=== PATIENT | male | born 1985 | race Caucasian/White ===

== ENCOUNTER 2024-11-09 23:36 | Emergency (ER) | payer SELFPAY ==
[2024-11-09 23:38] VITALS: BP 198/133; PULSE 118; RESP 18; TEMP 36.8; O2SAT 97; BMI 34.2
--- NOTE | 2024-11-09 23:38 | ECG_ITS ---
APPROVED REPORT Exam: Resting ECG HR:107 bpm ECG Measurements Heart Rate 107 AXES DC 140 P 58 QRSd 99 QRS 34 QT 304 T 3 QTc 367 Conclusion SINUS TACHYCARDIA POSSIBLE LEFT ATRIAL ENLARGEMENT [-0.1mV P-WAVE IN V1/V2] POSSIBLE LEFT VENTRICULAR HYPERTROPHY [VOLTAGE CRITERIA PLUS LAE OR QRS WIDENING] NONSPECIFIC T-WAVE ABNORMALITY ABNORMAL ECG UNCONFIRMED REPORT Electronically signed by : JOYCE ERVIN, 11/10/2024 04:57:56
--- NOTE | 2024-11-09 23:39 | XR_ITS ---
PROCEDURE INFORMATION: Exam: XR Chest Exam date and time: 11/10/2024 12:08 AM Age: 39 years old Clinical indication: Pain; Left-sided; Additional info: Cp TECHNIQUE: Imaging protocol: Radiologic exam of the chest. Views: 1 view. COMPARISON: No relevant prior studies available. FINDINGS: Lungs: Mild hypoventilation Pleural spaces: Unremarkable. No pleural effusion. No pneumothorax. Heart/Mediastinum: Unremarkable. No cardiomegaly. Vasculature: Central vascular crowding Bones/joints: Unremarkable. Other findings: No effusions IMPRESSION: Hypoventilated chest.
--- NOTE | 2024-11-09 23:44 | HMH.EDGENADL ---
Discharge Plan Disposition Patient Disposition: Home, Self-Care Prescriptions Prescriptions: New atorvastatin [Lipitor] 80 mg tablet 80 mg PO DAILY Qty: 60 2RF metformin 500 mg tablet 500 mg PO BID Qty: 30 2RF lisinopril 20 mg tablet 20 mg PO DAILY Qty: 60 2RF metoprolol succinate 25 mg tablet extended release 24 hr 25 mg PO DAILY Qty: 60 2RF Referrals Follow up/Referrals: Provider,Referral, MD [Primary Care Provider, Medical] - See instructions Activity Restrictions/Add. Instructions Additional Instructions/Restrictions: Recommend restarting your medications as previously prescribed, I sent new prescriptions. Recommend following up with PCP and with cardiology. Clinical Impressions Clinical Impression: Chest pain, Hypertension Stand Alone Forms Stand Alone Forms: Work/School Release Print Language Print Language: French Discharge ED Provider: Juan Francisco Lopez Adult HPI General Chief complaint: Chest Pain Stated complaint: chest pain Time Seen by Provider: 11/09/24 23:43 Mode of Arrival: Ambulatory Source of Information: Patient Description of Symptoms (Recalled from ER Triage Doc. by RN): pt to ED with c/o left sided chest pain x2 days pain is better at this time History of Present Illness HPI narrative: 39-year-old male with history of prior CA status post stent last year presents for chest pain. He reports has been ongoing for the last couple of days. Central/left-sided. Achy in nature. Reports it was better after taking some aspirin this morning but it is still hurting a little bit. He reports no shortness of breath. Denies any abdominal pain. Denies nausea or vomiting. He reports that he was supposed to be on a blood thinner and blood pressure medications but he lost his insurance recently and he has not taken any of his meds for the last couple of months. Related Data Previous Rx's ?Medication ?Instructions ?Recorded atorvastatin 80 mg tablet (Lipitor) 80 mg PO DAILY #60 tabs 11/10/24 lisinopril 20 mg tablet 20 mg PO DAILY #60 tabs 11/10/24 metformin 500 mg tablet 500 mg PO BID #30 tabs 11/10/24 metoprolol succinate 25 mg 25 mg PO DAILY #60 tabs 11/10/24 tablet,extended release 24 hr Allergies Allergy/AdvReac Type Severity Reaction Status Date / Time No Known Allergies Allergy Verified 11/09/24 23:43 [facility] Disclaimer: The information contained in this section may have been updated after the patient was seen, as this information can be updated by other users. Social History Smoking Status: Current every day smoker alcohol intake: never current occupational status: employed Travel in the last 8 weeks?: None ROS Obtained: Yes All systems reviewed & no additional complaints except as documented Physical Exam General General appearance: alert and in no apparent distress Head Head exam: atraumatic and normocephalic Eye Eye exam: Present normal appearance, PERRL and EOMI ENT ENT exam: Present normal oropharynx and normal external ear exam Neck Neck exam: Present normal inspection and full ROM Chest Chest inspection: Present normal inspection and symmetric chest wall rise; Absent tenderness Respiratory Respiratory exam: Present normal lung sounds bilaterally; Absent respiratory distress Cardiovascular Cardiovascular exam: Present regular rate and normal rhythm Abdominal Exam Abdominal exam: Present soft; Absent distention, tenderness or guarding Extremities Exam Extremities exam: Present normal inspection; Absent edema or joint swelling Back Exam Back exam: Present normal inspection; Absent tenderness Neurological Exam Neurological exam: Present alert and oriented X3; Absent motor sensory deficit Psychiatric Psychiatric exam: Present normal affect and normal mood Skin Skin exam: Present warm, dry and normal color Lymphatic Lymphatic Findings: no adenopathy Medical Decision Making Medical Records Medical records reviewed: Yes I reviewed the patient's medical records. Screening: Per USPSTF and CDC recommendations, given the prevalence of disease in our region, it is our hospital?s policy to screen for HIV and viral Hepatitis for all patients aged 18 and over and those with ongoing risk factors. Ross Inquiry Pt receiving controlled substance: No Ross was queried for this patient: No Vital Signs: 11/09/24 23:38 11/10/24 00:30 11/10/24 00:45 Temperature 98.2 F Temperature Source Oral Pulse Rate 111 H 111 H Pulse Rate [Left Radial] 118 H Respiratory Rate 18 18 22 Blood Pressure 165/99 H 154/94 H Blood Pressure [Right Arm] 198/133 H Blood Pressure Mean Blood Pressure Mean [Right Arm] 154 Blood Pressure Source Blood Pressure Source [Right Arm] Automatic Cuff Blood Pressure Position Blood Pressure Position [Right Arm] Sitting 02 Sat by Pulse Oximetry 97 96 95 Oxygen Delivery Method Room Air 11/10/24 01:15 11/10/24 01:30 11/10/24 01:45 Temperature Temperature Source Pulse Rate 105 H 103 H 98 H Pulse Rate [Left Radial] Respiratory Rate Blood Pressure 157/99 H 172/105 H 156/105 H Blood Pressure [Right Arm] Blood Pressure Mean Blood Pressure Mean [Right Arm] Blood Pressure Source Blood Pressure Source [Right Arm] Blood Pressure Position Blood Pressure Position [Right Arm] 02 Sat by Pulse Oximetry 97 96 96 Oxygen Delivery Method 11/10/24 02:00 11/10/24 02:30 11/10/24 02:49 Temperature Temperature Source Pulse Rate 102 H 99 H 107 H Pulse Rate [Left Radial] Respiratory Rate Blood Pressure 173/99 H 164/101 H Blood Pressure [Right Arm] Blood Pressure Mean Blood Pressure Mean [Right Arm] Blood Pressure Source Blood Pressure Source [Right Arm] Blood Pressure Position Blood Pressure Position [Right Arm] 02 Sat by Pulse Oximetry 96 95 Oxygen Delivery Method 11/10/24 03:00 11/10/24 03:30 11/10/24 03:30 Temperature Temperature Source Pulse Rate 98 H 86 Pulse Rate [Left Radial] Respiratory Rate 18 Blood Pressure 143/94 H 147/101 H Blood Pressure [Right Arm] Blood Pressure Mean 112 Blood Pressure Mean [Right Arm] Blood Pressure Source Blood Pressure Source [Right Arm] Blood Pressure Position Blood Pressure Position [Right Arm] 02 Sat by Pulse Oximetry 96 97 Oxygen Delivery Method 11/10/24 03:33 Temperature 98.2 F Temperature Source Oral Pulse Rate 89 Pulse Rate [Left Radial] Respiratory Rate 18 Blood Pressure 136/86 Blood Pressure [Right Arm] Blood Pressure Mean Blood Pressure Mean [Right Arm] Blood Pressure Source Automatic Cuff Blood Pressure Source [Right Arm] Blood Pressure Position Sitting Blood Pressure Position [Right Arm] 02 Sat by Pulse Oximetry Oxygen Delivery Method Room Air Lab Data Lab results reviewed: Yes I reviewed the patient's lab results. Lab Results 11/09/24 23:35: WBC 8.5, RBC 5.31, Hgb 16.1, Hct 45.0, MCV 84.7, MCH 30.3, MCHC 35.8 H, RDW 12.2, Plt Count 267, MPV 9.6, Neut % (Auto) 40.0, Lymph % (Auto) 48.2, [place] % (Auto) 8.2, Eos % (Auto) 2.4, Baso % (Auto) 0.7, Neut # (Auto) 3.4, Lymph # (Auto) 4.1, [place] # (Auto) 0.7, Eos # (Auto) 0.2, Baso # (Auto) 0.1, D-Dimer 0.54 H, Sodium 131 L, Potassium 4.4, Chloride 90 L, Carbon Dioxide 26, Anion Gap 19.4 H, BUN 10, Creatinine 0.50 L, Estimated Creat Clear 324 H, Estimated GFR 183, Est GFR ( Amer) 222, Glucose 396 H, Calcium 9.0, Total Bilirubin 1.1, AST 103 H, ALT 99 H, Alkaline Phosphatase 87, Troponin I < 0.01, Total Protein 9.0 H, Albumin 4.5, Globulin 4.5 H, Albumin/Globulin Ratio 1.0 L, Lipase 404 H 11/10/24 02:43: Troponin I < 0.01 11/09/24 23:35 11/09/24 23:35 Orders (Tests/Meds): ED MEDICATIONS Discontinued Medications Generic Name Dose Route Start Last Admin Trade Name Freq PRN Reason Stop Dose Admin Acetaminophen 1,000 mg 11/09/24 23:38 11/10/24 00:06 Acetaminophen 500mg Tab PO 11/09/24 23:39 1,000 mg ONCE ONE Administration Aspirin 324 mg 11/09/24 23:38 11/10/24 00:06 Aspirin 81mg Chewable Tablet PO 11/09/24 23:39 324 mg ONCE ONE Administration Belladonna Alkaloids 60 ml 11/09/24 23:38 11/10/24 00:06 Belladonna Alkaloids 60 Ml Ml PO 11/09/24 23:39 60 ml ONCE ONE Administration Iopamidol 70 ml 11/10/24 01:02 11/10/24 01:06 Iopamidol-370 (76%);100ml Bottle IV 11/10/24 01:03 70 ml ONCE ONE Administration Nitroglycerin 0.4 mg 11/09/24 23:38 11/10/24 00:07 Nitroglycerin 0.4mg Sl Tablet SL 12/09/24 23:37 0.4 mg Q5MINP PRN Administration Chest Pain Sodium Chloride 40 ml 11/10/24 01:02 11/10/24 01:06 0.9 % Sodium Chloride 50 Ml Vial IV 11/10/24 01:03 40 ml ONCE ONE Administration Sodium Chloride 10 ml 11/10/24 01:02 11/10/24 01:06 Sodium Chloride 0.9% 10ml Syr (Rad Only) IV 12/10/24 01:01 10 ml NEEDED PRN Administration Maintain IV Site ORDERS Category Date Time Status CT angio chest PE protocol Stat Cat Scan 11/10/24 00:42 Completed CXR --portable [XR chest portable] Stat Exams 11/09/24 23:39 Completed CBC w/Auto Diff [Complete Blood Count Auto Diff] Stat Lab 11/09/24 23:35 Completed CMP [Comprehensive Metabolic Panel] Stat Lab 11/09/24 23:35 Completed D-Dimer Stat Lab 11/09/24 23:35 Completed Lipase Stat Lab 11/09/24 23:35 Completed Troponin I Q3H Lab 11/09/24 23:35 Completed Troponin I Q3H Lab 11/10/24 02:43 Completed ECG Data Tracing #1: I reviewed this ECG and interpreted as documented below: Sinus tachycardia, rate of 107, possible LVH, no significant ST elevation. T wave inversions in lead III and aVF ECG initial impression date: 11/09/24 ECG initial impression time: 23:33 HEART Score History (anamnesis): Moderately suspicious ECG: Non-specific disturbance Age: <45 years Risk factors: Atherosclerosis history Troponin: </= normal limit HEART Score: 4 Medical Decision Narrative: 39-year-old male with history of coronary artery disease status post stent last year, hypertension not on medications for the last couple of months, presents for 2 days of worsening chest pain. History was obtained via interactive discussion with patient. On arrival, patient is afebrile, hypertensive, generally well-appearing, satting poorly on room air, tachycardic, moving all extremities spontaneously. Full physical exam performed and significant for no significant physical exam abnormalities. Differential includes but is not limited to ACS, PE, musculoskeletal chest pain, hypertension, hypertensive emergency. Patient was given aspirin Tylenol nitro GI cocktail for symptomatic management and correction of underlying abnormalities. Workup initiated including CBC CMP troponin EKG D-dimer chest x-ray lipase. On re-evaluation, patient [remains afebrile, HD stable.] Laboratory workup independently interpreted by me and significant for negative initial troponin, mildly elevated LFTs, mildly elevated lipase (patient has no epigastric pain or nausea vomiting), D-dimer elevated, will assess with CT PE. Imaging independently interpreted by me and significant for clear lungs on radiographs, some groundglass opacities which could reflect mild edema versus infection. See radiology read for full review of final results. Patient was placed in ED observation status for serial cardiac monitoring and serial cardiac enzymes. On reassessment, patient armando chest pain-free. Blood pressure stable. Continues to sat appropriately on room air. Repeat troponin returns undetectably low. Interactive discussion was had with patient guarding his presentation. I think this is likely the result of hypertension and not being able take his antihypertensive medications at home after he lost his insurance. I sent in new prescriptions for all of his medications and encouraged him to establish care with one of our primary care providers. He was given return precautions and discharged in stable condition. Procedures Risk/Benefits of Procedure(s) Were Explained: Yes Critical Care Critical Care Time Critical Care Time: No
[2024-11-09 23:48] LABS: Hematocrit 45.0 % (42.0-52.0); Hemoglobin 16.1 g/dL (14.1-18.0); Immature Granulocytes % 0.5 %; Mean Corpuscular HGB Conc 35.8 g/dL (31.8-35.4); Mean Corpuscular Hemoglobin 30.3 pg (27.0-31.2); Mean Corpuscular Volume 84.7 fl (80-94); Nucleated Red Blood Cells % 0 %; Platelet Count 267 K/mm3 (142-424); Red Blood Count 5.31 M/mm3 (4.60-6.20); Red Cell Distribution Width-SD 37.4 fL; White Blood Count 8.5 K/mm3 (4.8-10.8)
--- OUTSIDE RECORDS SUMMARY | 2024-11-09 23:48 | XMS_ITS | Clinical Summary ---
Author Organization [facility] ([place], [place], [place], [place]) Address [address] [place] [address] Care Team Providers Care Fire Sprinkler Inspector Name Role Phone Trinh Espinal SARA Primary Care Provider [phone] Allergies No known active allergies Medications empagliflozin (JARDIANCE) 10 mg tablet Take 1 tablet (10 mg total) by mouth daily. Active nitroglycerin (NITROSTAT) 0.4 MG SL tabletIndications: Coronary artery disease involving cachil dehe coronary artery of cachil dehe heart without angina pectoris Put 1 pill under tongue every 5min as needed for chest pain.No more than 3 doses in 15min.Call 911 if pain unrelieved 5min after 1st dose. 25 tablet 1 4 025 Active HYDROcodone-acetam inophen (NORCO) 5-325 mg per tablet Take 1 tablet by mouth every 6 (six) hours as needed. 4 Active ticagrelor (BRILINTA) 90 mg tab tabletIndications: Non-STEMI (non-ST elevated myocardial infarction) (HCC),H/O heart artery stent Take 1 tablet (90 mg total) by mouth 2 (two) times daily. 180 tablet 1 4 Active DULoxetine (CYMBALTA) 30 MG capsuleIndications :Other diabetic neurological complication associated with type 2 diabetes mellitus (HCC) Take 1 capsule (30 mg total) by mouth daily. 90 capsule 3 5 Active metoprolol succinate (TOPROL-XL) 25 MG 24 hr tabletIndications: Coronary artery disease involving cachil dehe coronary artery of cachil dehe heart without angina pectoris TAKE 1 TABLET (25 MG TOTAL) BY MOUTH DAILY. 90 tablet 1 5 026 Active glipiZIDE (GLUCOTROL XL) 5 MG 24 hr tabletIndications: Type 2 diabetes mellitus without complication, without long-term current use of insulin (HCC) Take 1 tablet (5 mg total) by mouth daily. 90 tablet 1 5 Active lisinopriL (ZESTRIL) 20 MG tabletIndications: Hypertension, unspecified type Take 1 tablet (20 mg total) by mouth daily. 90 tablet 1 5 Active metFORMIN (GLUCOPHAGE-XR) 500 MG 24 hr tabletIndications: Type 2 diabetes mellitus without complication, without long-term current use of insulin (HCC) Take 1 tablet (500 mg total) by mouth 2 (two) times daily HOLD for 2 days post cath. September restart on 08-22-2023 for evening dose.. 180 tablet 1 5 Active atorvastatin (LIPITOR) 80 MG tabletIndications: High triglycerides,Hype rlipidemia, unspecified hyperlipidemia type Take 1 tablet (80 mg total) by mouth nightly. 90 tablet 1 5 Active aspirin 81 MG EC tabletIndications: Non-STEMI (non-ST elevated myocardial infarction) ([facility]),H/O heart artery stent Take 1 tablet (81 mg total) by mouth daily. 90 tablet 1 5 Active clopidogreL (PLAVIX) 75 mg tabletIndications: Non-STEMI (non-ST elevated myocardial infarction) ([facility]) Take 1 tablet (75 mg total) by mouth daily Look-alike/S ound-alike medication. 30 tablet 11 5 Active sildenafiL (VIAGRA) 50 MG tabletIndications: Other male erectile dysfunction Take 1 tablet (50 mg total) by mouth daily as needed. 30 tablet 2 5 Active Active Problems Problem Noted Date Diagnosed Date Other diabetic neurological complication associated with type 2 diabetes mellitus 06/19/2024 H/O heart artery stent 06/19/2024 Hyperlipidemia, unspecified hyperlipidemia type 06/19/2024 Hypertension, unspecified type 06/19/2024 Chest pain, unspecified type 12/17/2023 Non-STEMI (non-ST elevated myocardial infarction ) 08/20/2023 Resolved Problems Problem Noted Date Diagnosed Date Resolved Date NSTEMI (non-ST elevated myoc ardial infarction) 08/19/2023 08/20/2023 Encounters Date Type Department Care Team Description 10/06/[address] [address] Trinh Espinal APRN Other male erectile dysfunction 08/27/2024 Orders Only [address] [address] Annmarie Mujica MA Non-STEMI (non-ST elevated myocardial infarction) (HCC) (Primary Dx) 08/22/2024 Telephone [facility] - [address] [address] Stefan Oropeza PA-C GEL 08/14/2024 Orders Only [address] [address] Annmarie Mujica MA Other male erectile dysfunction 08/14/2024 Orders Only [address] [address] Marguerite Duran CMA Other male erectile dysfunction 08/14/[address] [address] Trinh Espinal APRN Medication Refill from Last 3 Months Immunizations Name Administration Dates Next Due Covid-19 Vaccine MRNA (PF) 1 2yr+ (Aptera/EqualEyes)([id number]) 12/16/2020,11/25/2020 Tdap 12/16/2020 Family History Medical History Relation Name Comments Diabetes Father Heart attack Father at 47 from heart attack Hyperlipidemia Father Hypertension Father Diabetes Mother Hyperlipidemia Mother Hypertension Mother Neuropathy Mother Thyroid disease Mother Diabetes Paternal Grandfather Heart attack Paternal Grandfather multipl e heart attacks Diabetes Paternal Grandmother Relation Name Status Comments Father Mother Alive Paternal Grandfather Paternal Grandmother Social History Tobacco Use Types Packs/Day Years Used Date Smoking Tobacco: Former Cigarettes Smokeless Tobacco: Former Tobacco Cessation:Counseling Given: Not Answered Comments:Vapes Alcohol Use Standard Drinks/Week Comments Not Currently 0 (1 standard drink = 0.6 oz pur e alcohol) [facility] - Mental Health Answer Date Recorde d Little interest or pleasure in doing things Not at all 06/18/2024 Feeling down, depressed, or hopeless Not at all 06/18/2024 Feeling of Stress Not on file 06/18/2024 Utilities Answer Date Recorded In the past 12 months, has t he electric, gas, oil, or water company threatened to shut off services in your home? No 08/19/2023 Food Insecurity Answer Date Recorded Within the past 12 months, y ou worried that your food would run out before you got money to buy more. Never true 08/19/2023 Within the past 12 months, t he food you bought just didn't last and you didn't have money to get more. Never true 08/19/2023 Transportation Needs Answer Date Record ed In the past 12 months, has l ack of reliable transportation kept you from medical appointments, meetings, work or from getting things needed for daily living? No 08/19/2023 Financial Resource Strain Answer Date R ecorded How hard is it for you to pa y for the very basics like food, housing, medical care, and heating? Would you say it is: Not hard at all 08/19/2023 Employment Answer Date Recorded Do you want help finding or keeping work or a job? I do not need or want help 08/19/2023 Family and Community Support Answer Hi e Recorded If for any reason you need h elp with day-to-day activities such as bathing, preparing meals, shopping, managing finances, etc., do you get the help you need? I don't need any help 08/19/2023 Feeling Lonely or Isolated 0 08/18 Educational Attainment Answer Date Kartik rded Do you speak a language other than [place] at [facility]? No 08/19/2023 Do you want help with school or training? For example, starting or completing job training or getting a high school diploma, GED or equivalent. No 08/19/2023 Physical Activity Answer Date Recorded Number of minutes of exercise per week 90 08/19/2023 Substance Use Answer Date Recorded How many times in the past y ear have you used prescription drugs for non-medical reasons? Never 08/19/2023 How many times in the past year have you used [place] legal drugs? Never 08/19/2023 Sex and Gender Information Value Date Recorded Sex Assigned at Male 11/01/2021 8:20 PM CDT Legal Sex Male 8:20 PM CDT Gender Identity Male 11/01/2021 8:20 PM CDT Sexual Orientation Not on file Last Filed Vital Signs Vital Sign Reading Time Taken Comments Blood Pressure 134/88 06/18/2024 11:48 AM EST Pulse 105 06/18/2024 11:48 AM EST Temperature 36.9 C (98.4 F) 06/18/2024 11:48 AM EST Respiratory Rate 23 05/24/2024 10:30 PM EST Oxygen Saturation 97% 06/18/2024 11:48 AM EST Inhaled Oxygen Concentration - - Weight 121.1 kg (267 lb) 06/18/2024 11:48 AM EST Height 185.4 cm (6' 1 ) 06/18/2024 11:48 AM EST Body Mass Index 35.23 06/18/2024 11:48 AM EST Plan of Treatment Health Maintenance Due Date Last Done Comments Diabetic Kidney Health Evalu ation (KED) 1983 Diabetic Eye Exam 1993 HIV Screening 1998 Hepatitis C Screening 2001 Pneumococcal Vaccine: 0-49 Y ears (1 of 2 - PCV) 2002 COVID-19 VACCINE (3 - 2023-2 5 season) 2024 12/16/2020, 11/25/2020 Hemoglobin A1C 10/08/2024 04/09/2024, 12/05, 08/19/2023, Additional history exists Influenza Vaccine (#1) 2025 Depression Screening (12+) 06/18/2025 06/18/2024 Tobacco Cessation Counseling and Screening (12+) 06/19/2025 06/19/2024 Lipid Panel 04/09/2027 04/09/2024, 08/05, 01/22/2023 DTAP/TDAP/TD VACCINES (2 - T d or Tdap) 12/16/2030 12/16/2020 Procedures Procedure Name Priority Date/Time Associated Diagnosis Comments HEMOGLOBIN A1C Routine 04/09/2024 11:59 AM EST Hypertension, unspecified type Mixed hyperlipidemia Type 2 diabetes mellitus without complication, unspecified whether senior care insulin use (HCC) Presence of drug coated stent in left circumflex coronary artery Coronary artery disease involving cachil dehe coronary artery of c[place]il dehe heart without angina pectoris LIPID PANEL Routine 04/09/2024 11:59 AM EST Hypertension, unspecified type Mixed hyperlipidemia Type 2 diabetes mellitus without complication, unspecified whether dedicated intermodal truck driver insulin use (HCC) Presence of drug coated stent in left circumflex coronary artery Coronary artery disease involving cachil dehe coronary artery of cachil dehe heart without angina pectoris from Last 3 Months or Most Recently Relevant to Health Maintenance Results * (ABNORMAL) Hemoglobin A1c (04/09/2024 11:59 AM EST) Hemoglobin A1c 8.5(H) 4.8 - 5.6 % [facility] Comment: Prediabetes: 5.7 - 6.4 Diabetes: >6.4 Glycemic control for adults with diabetes: <7.0 Blood 04/09/2024 11:5 9 AM EST 04/09/2024 Narrative [facility] - 04/10/2024 7:08 AM EST Performed at: 01 - [address] [id number] Metal Trimmer: Satish Murillo PhD, Phone: [phone] Charles Kearns DO LAB BLOOD ORDERABLES Final Re sult [facility] * (ABNORMAL) Lipid panel (04/09/2024 11:59 AM EST) Cholesterol, Total 124 100 - 199 mg/dL [facility] Triglycerides 330(H) 0 - 149 mg/dL [facility] HDL Cholesterol 25(L) >39 mg/dL [facility] VLDL Cholesterol Marcellus 50(H) 5 - 40 mg/dL [facility] LDL Calculated 49 0 - 99 mg/dL [facility] Blood 04/09/2024 11:5 9 AM EST 04/09/2024 Narrative [facility] - 04/10/2024 7:08 AM EST Performed at: 01 - [facility] [address] [id number] Metal Trimmer: Satish Murillo PhD, Phone: [phone] Charles Kearns DO LAB BLOOD ORDERABLES Final Re sult [facility] from Last 3 Months or Most Recently Relevant to Health Maintenance Insurance [employer] Advance Directives For more information, please contact: [phone] * Full Code (Latest Code Status on File) Date Activated Date Inactivated Comments 08/20/2023 3:36 PM 08/20/2023 6:37 PM * Full Code Date Activated Date Inactivated Comments 08/20/2023 3:34 PM 08/20/2023 3:36 PM * Full Code Date Activated Date Inactivated Comments 08/19/2023 2:48 AM 08/20/2023 3:34 PM -Attempt Res uscitation if person has no pulse and is not breathing. -If no pulse or not breathing attempt CPR/CODE. -Call Rapid Response if patient is in distress. Care Teams Fire Sprinkler Inspector Relationship Specialty Start Date End Date Trinh Espinal, CABLE INSTALLATION MANAGER [address] [place] [address] PCP - General Family Medicine 04/23/24
--- OUTSIDE RECORDS SUMMARY | 2024-11-09 23:48 | XMS_ITS | Encounter Summary ---
Author Organization [employer] ([place], [place], [place], [place]) Address [address] [place] [address] Care Team Providers Care Retail Service Representative Name Role Phone Trinh Espinal CORRECTIONAL MAINTENANCE TECHNICIAN Primary Care Provider [phone]- [phone] Reason for Visit * Reason Onset Date Comments Medication Refill 08/14/2024 Encounter Details Date Type Department Care Team (Late st Contact Info) Description 08/14/2024 Telephone [facility] Primary Care [address] [address] Trinh Espinal, CORRECTIONAL MAINTENANCE TECHNICIAN [address] [place] [address] Medication Refill Social History Tobacco Use Types Packs/Day Years Used Date Smoking Tobacco: Former Cigarettes Smokeless Tobacco: Former Comments:Vapes Alcohol Use Standard Drinks/Week Comments Not Currently 0 (1 standard drink = 0.6 oz pur e alcohol) [facility] - Mental Health Answer Date Recorde d [...] Do you speak a language other than Bhutanese at [facility]? No 08/19/2023 Do you want help [...] PM CDT Sexual Orientation Not on file documented as of this encounter Miscellaneous Notes * Telephone Encounter - Jordyn Howell - 08/14/2024 3:02 PM EDT FROM: Jorge Luis Flores CSN: TO: ABILIO [facility] CLINICAL COIN MACHINE SERVICER REPAIRER [[id number]] SUBJECT: Medication Related Request PROVIDER: TRINH ESPINAL [[id number]] DEPARTMENT: [facility] [[id number]] ENCOUNTER REASON FOR CALL: MEDICATION REFILL [[id number]] ENCOUNTER TYPE: Telephone REASON FOR CALL: Refill request APPOINTMENT OFFERED? No LAST VISIT: 2024-06-18 NEXT VISIT: 2024-10-08 MESSAGE PRIORITY: High ADDITIONAL INFORMATION: Pt requesting a refill, has no remaining refills at pharmacy and has only 1pill left. Please send this as soon as possible. Can call pt with any questions MEDICATION 1: MEDICATION TYPE: Non controlled RX MEDICATION NAME: sildenafiL (VIAGRA) 50 MG tablet PREFERRED PHARMACY? [facility]/pharmacy #[id number] - [place], [place] - [address] [facility] [address] [place] [address] CALLER'S NAME: Jeremy Melo RELATION TO PATIENT: Self [1] PREFERRED LANGUAGE: Bhutanese BEST CALL BACK PHONE NUMBER: Home Phone: ([phone]) WHAT IS THE BEST WAY FOR THE OFFICE TO CONTACT YOU?: OK to leave message on voicemail documented in this encounter Plan of Treatment Not on file documented as of this encounter Visit Diagnoses Not on filedocumented in this encounter Care Teams Retail Service Representative Relationship Specialty Start Date End Date Trinh Espinal, CORRECTIONAL MAINTENANCE TECHNICIAN [address] [place] [address] PCP - General Family Medicine 04/23/24 documented as of this encounter
--- OUTSIDE RECORDS SUMMARY | 2024-11-09 23:48 | XMS_ITS | Encounter Summary ---
Author Organization [employer] ([place], [place], [place], [place]) Address [address] [place] [address] Care Team Providers Care Buildings And Grounds Superintendent Name Role Phone Misty Alvarez NP Primary Care Provider [phone] Santhosh Abernathy MD Primary Care Provider [phone] Trinh Espinal APRN Primary Care Provider [phone] Reason for Visit * Reason Onset Date Comments needing call back about clearance 10/04/2023 Encounter Details Date Type Department Care Team (Late st Contact Info) Description 10/04/2023 Telephone [facility] Cardiology [address] [address] David Franklin, PA-C [address] [place] [address] needing call back about clearance Social History Tobacco Use Types Packs/Day Years Used Date Smoking Tobacco: Some Days Cigarettes Smokeless Tobacco: Current Comments:Vapes Alcohol Use Standard Drinks/Week Comments Not Currently 0 (1 standard drink = 0.6 oz pur e alcohol) [facility] - Mental Health Answer Date [...] Do you speak a language other than Ivorian at [facility]? 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 , he stated needed echo or stressand patient was seen on 08/30 and echo on 08/19/ Please call [phone] documented in this encounter Plan of Treatment Not on file documented as of this encounter Visit Diagnoses Not on filedocumented in this encounter Care Teams Buildings And Grounds Superintendent Relationship Specialty Start Date End Date Misty Alvarez NP [address] [place] [address] PCP - General Family Medicine 01/22/23 03/02/24 Santhosh Abernathy MD [address] [place] [address] PCP - General Internal Medicine 03/03/24 04/15/24 Tirnh Espinal APRN [address] [place] [address] PCP - General Family Medicine 04/23/24 documented as of this encounter
--- OUTSIDE RECORDS SUMMARY | 2024-11-09 23:48 | XMS_ITS | Encounter Summary ---
Author Organization [employer] ([place], [place], [place], [place]) Address [address] [place] [address] Care Team Providers Care Mining Plant Operator Name Role Phone Trinh Espinal CIGAR BANDER HAND Primary Care Provider [phone] Reason for Visit * Reason Onset Date Comments Medication Refill 10/06/2024 Encounter Details Date Type Department Care Team (Late st Contact Info) Description 10/06/2024 Refill [facility] Primary Care [address] [address] Trinh Espinal, CIGAR BANDER HAND [address] [place] [address] Other male erectile dysfunction Social History Tobacco Use Types Packs/Day Years Used Date Smoking Tobacco: Former Cigarettes Smokeless Tobacco: Former Comments:Vapes Alcohol Use Standard Drinks/Week Comments Not Currently 0 (1 standard drink = 0.6 oz pur e alcohol) [facility] - Mental Health Answer Date Recorde d [...] Do you speak a language other than Egyptian at [facility]? No 08/19/2023 Do you want help with [...] * Telephone Encounter - Jordyn Howell - 10/06/2024 2:04 PM EDT FROM: Yaquelin Felix TO: ABILIO [facility] CLINICAL PLUG MACHINE OPERATOR [[id number]] SUBJECT: Medication Related Request PROVIDER: TRINH ESPINAL [[id number]] DEPARTMENT: [facility] [[id number]] ENCOUNTER REASON FOR CALL: MEDICATION REFILL [[id number]] ENCOUNTER TYPE: Refill REASON FOR CALL: Refill request
APPOINTMENT OFFERED? No
LAST VISIT: 2024-06-18
NEXT VISIT: 2024-10-08
MESSAGE PRIORITY: Routine
MEDICATION 1: MEDICATION TYPE: Non controlled RX
MEDICATION NAME: sildenafiL (VIAGRA) 50 MG tablet
ORDERING PROVIDER: Trinh Espinal APRN
MEDICATION DETAILS: Take 1 tablet (50 mg total) by mouth daily as needed.
PREFERRED PHARMACY? [facility]/pharmacy #[id number] - [place], [place] - [address] [address] [facility] [address] CALLER'S NAME: Jeremy Lebron Kameron RELATION TO PATIENT: Self [1] PREFERRED LANGUAGE: Egyptian BEST CALL BACK PHONE NUMBER: Mobile Phone: ([phone]) WHAT IS THE BEST WAY FOR THE OFFICE TO CONTACT YOU?: OK to leave message on voicemail documented in this encounter Plan of Treatment Not on file documented as of this encounter Visit Diagnoses Diagnosis Other male erectile dysfunction documented in this encounter Care Teams Mining Plant Operator Relationship Specialty Start Date End Date Trinh Espinal APRN [address] [place] [address] PCP - General Family Medicine 04/23/24 documented as of this encounter
--- OUTSIDE RECORDS SUMMARY | 2024-11-09 23:48 | XMS_ITS | Encounter Summary ---
Author Organization [employer] ([place], [place], [place], [place]) Address [address] [place] [address] Care Team Providers Care Traffic Coordinator Name Role Phone Misty Alvarez NP Primary Care Provider [phone] Santhosh Abernathy MD Primary Care Provider [phone] Trinh Espinal APRN Primary Care Provider [phone] Encounter Details Date Type Department Care Team (Late st Contact Info) Description 10/04/2023 Telephone [facility] Primary Care [address] [facility] [address] [place] [address] Emily Munguia, QUANTITATIVE ANALYST MARKETING Social History Tobacco Use Types Packs/Day Years Used Date Smoking Tobacco: Some Days Cigarettes Smokeless Tobacco: Current Comments:Vapes Alcohol Use Standard Drinks/Week Comments Not Currently 0 (1 standard drink = 0.6 oz pur e alcohol) Utilities Answer Date Recorded In the past [...] Do you speak a language other than Nigerien at [facility]? No 08/19/2023 Do you want help with [...] on file documented as of this encounter Plan of Treatment Not on file documented as of this encounter Visit Diagnoses Not on filedocumented in this encounter Care Teams Traffic Coordinator Relationship Specialty Start Date End Date Misty Alvarez NP [address] [place] [address] PCP - General Family Medicine 01/22/23 03/02/24 Santhosh Abernathy MD [address] [place] [address] PCP - General Internal Medicine 03/03/24 04/15/24 Trinh Espinal APRN [address] [place] [address] PCP - General Family Medicine 04/23/24 documented as of this encounter
--- OUTSIDE RECORDS SUMMARY | 2024-11-09 23:48 | XMS_ITS | Encounter Summary ---
Author Organization [employer] ([place], [place], [place], [place]) Address [address] [place] [address] Care Team Providers Care Sales Service Assistant Name Role Phone Misty Alvarez NP Primary Care Provider [phone] Santhosh Abernathy MD Primary Care Provider [phone] Trinh Espinal APRN Primary Care Provider [phone] Reason for Visit * Reason Onset Date Comments Positive Covid 07/06/2023 Encounter Details Date Type Department Care Team (Late st Contact Info) Description 07/06/2023 Telephone [facility] Primary [facility] [address] [place] [address] [place] [address] [place] [address] Positive Covid Social History Tobacco Use Types Packs/Day Years Used Date Smoking Tobacco: Every Day Cigarettes Smokeless Tobacco: Never Alcohol Use Standard Drinks/Week Comments Not Currently 0 (1 standard drink = 0.6 oz pur e alcohol) [facility] - Mental Health Answer Date Recorde d [...] Do you speak a language other than South African at [facility]? No 08/19/2023 Do you want help [...] encounter Miscellaneous Notes * Telephone Encounter - Annmarie Mujica MA - 07/06/2023 10:14 AM EST Notified to treat symptoms otc call if its worse ER MAKER * Telephone Encounter - Elizabeth Hdez - 07/06/2023 10:11 AM EST Last Visit: 05/02/23 Next Visit: None pending Caller Message (please include as much detail as possible)? Pt called stating that she is covid positive as well as her father. They tested pt and he is also positive. He is experiencing cough, headache and fatigue. Symptoms started last night. She would like to know if anything can be called in? Is follow up action needed? Yes please call back to advise/discuss. Explain: Caller Name: Edilia Conn Relation to patient: Best Call Back OK to leave message on voicemail: Yes ER MAKER documented in this encounter Plan of Treatment Not on file documented as of this encounter Visit Diagnoses Not on filedocumented in this encounter Care Teams Sales Service Assistant Relationship Specialty Start Date End Date Misty Alvarez NP [address] [place] [address] PCP - General Family Medicine 01/22/23 03/02/24 Santhosh Abernathy MD [address] [place] [address] PCP - General Internal Medicine 03/03/24 04/15/24 Trinh Espinal APRN [address] [place] [address] PCP - General Family Medicine 04/23/24 documented as of this encounter
--- OUTSIDE RECORDS SUMMARY | 2024-11-09 23:48 | XMS_ITS | Encounter Summary ---
Author Organization [facility] Address [address] [place] [address] Care Team Providers Care Self Pay Collector Name Role Phone Pcp, No Primary Care Provider Unavailabl e Encounter Details Date Type Department Care Team (Late st Contact Info) Description 01/06/2024 Ophth Exam [facility] [address] [place] [address] Marilu De Dios MD [address] [place] [address] Social History Tobacco Use Types Packs/Day Years Used Date Smoking Tobacco: Never Alcohol Use Standard Drinks/Week Comments No 0 (1 standard drink = 0.6 oz pure alcohol) Alcoholic Drinks/day: Never Drank Alcohol Sex and Gender Information Value Date Recorded Sex Assigned at Male 01/06/2024 4:20 AM EDT Legal Sex Male 6:19 PM EDT Gender Identity Not on file Sexual Orientation Not on file documented as of this encounter Functional Status * Calculated C-SSRS Risk Score (Lifetime/Recent) Answer Date of Assessment Author No Risk Indicated 01/06/2024 12:02 AM EDT Elsa Gibson RN * Question Answer Date of Assessment Author 1. Wish to be (Past 1 Month) No 024 12:02 AM Elsa Garrison, RN 2. Non-Specific Active Suici heather Thoughts (Past 1 Month) No 01/06/2024 12:02 AM MICHELLET Elsa Gibson RN 6. Suicidal Behavior (Lifetime) No 12:02 AM Elsa Garrison, RN documented as of this encounter Plan of Treatment Not on file documented as of this encounter Visit Diagnoses Not on filedocumented in this encounter Care Teams Self Pay Collector Relationship Specialty Start Date End Date Pcp, Kellie [address] [place] [address] PCP - General Family Medicine 01/05/24 documented as of this encounter
--- OUTSIDE RECORDS SUMMARY | 2024-11-09 23:48 | XMS_ITS | Referral Summary ---
Author Organization [employer] ([place], [place], [place], [place]) Address [address] [place] [address] Care Team Providers Care Power Checker Name Role Phone Trinh Espinal DIE ENGRAVER Primary Care Provider [phone] Encounters Date Type Department Care Team Description 10/06/[address] [address] Trinh Espinal APRN Other male erectile dysfunction 08/27/2024 Orders Only [address] [address] Annmarie Mujica MA Non-STEMI (non-ST elevated myocardial infarction) (HCC) (Primary Dx) 08/22/2024 Telephone [facility] Orthopedics - [address] [address] Stefan Oropeza PA-C GEL 08/14/2024 Orders Only [address] [address] Annmarie Mujica MA Other male erectile dysfunction 08/14/2024 Orders Only [address] [address] Marguerite Duran CMA Other male erectile dysfunction 08/14/[address] [address] Trinh Espinal APRN Medication Refill from Last 3 Months Allergies No known active allergies Medications empagliflozin (JARDIANCE) 10 mg tablet Take 1 tablet (10 mg total) by mouth daily. Active nitroglycerin (NITROSTAT) 0.4 MG SL tabletIndications: Coronary artery disease involving [place] coronary artery of [place] heart without angina pectoris Put 1 pill [...] 24 hr tabletIndications: Coronary artery disease involving [place] coronary artery of [place] heart without angina pectoris TAKE 1 TABLET (25 MG TOTAL) BY MOUTH DAILY. 90 tablet 1 5 026 Active glipiZIDE (GLUCOTROL XL) 5 MG 24 hr tabletIndications: Type 2 diabetes mellitus without complication, without long-term current use of insulin ([facility]) Take 1 tablet (5 mg total) by mouth daily. 90 tablet 1 5 Active lisinopriL (ZESTRIL) 20 MG tabletIndications: Hypertension, unspecified type Take 1 tablet (20 mg total) by mouth daily. 90 tablet 1 5 Active metFORMIN (GLUCOPHAGE-XR) 500 MG 24 hr tabletIndications: Type 2 diabetes mellitus without complication, without long-term current use of insulin ([facility]) Take 1 tablet (500 mg total) by mouth 2 (two) times daily HOLD for 2 days post cath. May restart on 08-22-2023 for evening dose.. 180 tablet 1 5 Active atorvastatin (LIPITOR) 80 MG tabletIndications: High triglycerides,Hype rlipidemia, unspecified hyperlipidemia type Take 1 tablet (80 mg total) by mouth nightly. 90 tablet 1 5 Active aspirin 81 MG EC tabletIndications: Non-STEMI (non-ST elevated myocardial infarction) (HCC),H/O heart artery stent Take 1 tablet (81 mg total) by mouth daily. 90 tablet 1 5 Active clopidogreL (PLAVIX) 75 mg tabletIndications: Non-STEMI (non-ST elevated myocardial infarction) (HCC) Take 1 tablet (75 mg total) by [...] (non-ST elevated myoc ardial infarction) 08/19/2023 08/20/2023 Immunizations Name Administration Dates Next Due Covid-19 Vaccine MRNA (PF) 1 2yr+ ([employer])([id number]) 12/16/2020,11/25/2020 Tdap 12/16/2020 Social History Tobacco Use Types Packs/Day Years Used Date Smoking Tobacco: Former Cigarettes Smokeless Tobacco: Former Tobacco Cessation:Counseling Given: Not Answered Comments:Vapes Alcohol Use Standard Drinks/Week Comments Not Currently 0 (1 standard drink = 0.6 oz pur e alcohol) [facility] - Mental Health Answer Date Recorde d [...] Do you speak a language other than [place] Islander at [facility]? No 08/19/2023 Do you want help [...] 06/18/2024 11:48 AM EST Plan of Treatment Not on file Procedures Procedure Name Priority Date/Time Associated Diagnosis Comments HEMOGLOBIN A1C Routine 04/09/2024 11:59 AM EST Hypertension, unspecified type Mixed hyperlipidemia Type 2 diabetes mellitus without complication, unspecified whether senior care insulin use (HCC) Presence of drug coated stent in left circumflex coronary artery Coronary artery disease involving [place] coronary artery of [place] heart without angina pectoris LIPID PANEL Routine 04/09/2024 11:59 AM EST Hypertension, unspecified type Mixed hyperlipidemia Type 2 diabetes mellitus without complication, unspecified whether longitudinal float operator insulin use (HCC) Presence of drug coated stent in left circumflex coronary artery Coronary artery disease involving k[place] coronary artery of [place] heart without angina pectoris from Last 3 Months or Most Recently Relevant to Health Maintenance Results * (ABNORMAL) Hemoglobin A1c (04/09/2024 11:59 AM EST) Hemoglobin A1c 8.5(H) 4.8 - 5.6 % [facility] Comment: Prediabetes: 5.7 - 6.4 Diabetes: >6.4 Glycemic control for adults with diabetes: <7.0 Blood 04/09/2024 11:5 9 AM EST 04/09/2024 Narrative [facility] - 04/10/2024 7:08 AM EST Performed at: [address] [place] [id number] Canning Machine Operator: Satish Murillo PhD, Phone: [phone] Charles Urmila DO LAB BLOOD ORDERABLES Final Re sult [...] 7:08 AM EST Performed at: 01 - [address] [id number] Canning Machine Operator: Satish Murillo PhD, Phone: [phone] Charles Kearns DO LAB BLOOD ORDERABLES Final Re sult Performing Organization Address City/[facility]/ZIP Co de Phone Number [facility] from Last 3 Months or Most Recently Relevant to Health Maintenance Insurance [facility] Advance Directives For more information, please contact: [phone] * Full Code (Latest Code Status on [...] if patient is in distress. Care Teams Power Checker Relationship Specialty Start Date End Date Trinh Espinal, DIE ENGRAVER [address] [place] [address] PCP - General Family Medicine 04/23/24
--- OUTSIDE RECORDS SUMMARY | 2024-11-09 23:48 | XMS_ITS | Clinical Summary ---
Author Organization Healthcare Address [address] [place] [address] Care Team Providers Care Press Leader Name Role Phone Pcp, No Primary Care Provider Unavailabl e Allergies No known active allergies Medications ketotifen (Zaditor) 0.035 % ophthalmic solution Administer 1 drop into both eyes 2 (two) times a day. Until symptoms resolve 5 mL Active Additional Information Patient not taking.Reported on 01/23/2024 aritificial tears (Bion Tears) 0.1-0.3 % ophthalmic solution Administer 1 drop into both eyes 4 (four) times a day if needed for dry eyes. 30 mL Active Additional Information Patient not taking.Reported on 01/23/2024 Social History Tobacco Use Types Packs/Day Years Used Date Smoking Tobacco: Never Alcohol Use Standard Drinks/Week Comments No 0 (1 standard drink = 0.6 oz pure alcohol) Alcoholic Drinks/day: Never Drank Alcohol Sex and Gender Information Value Date Recorded Sex Assigned at Male 01/06/2024 4:20 AM EDT Legal Sex Male 6:19 PM EDT Gender Identity Not on file Sexual Orientation Not on file Last Filed Vital Signs Vital Sign Reading Time Taken Comments Blood Pressure 136/81 01/06/2024 4:24 AM EDT Pulse 94 01/06/2024 4:24 AM EDT Temperature 36.8 C (98.3 F) 01/06/2024 4:24 AM EDT Respiratory Rate 16 01/06/2024 4:24 AM EDT Oxygen Saturation 96% 01/06/2024 4:24 AM EDT Inhaled Oxygen Concentration - - Weight 117 kg (258 lb 0.1 oz) 02/25/2013 2:57 PM EDT Height 182.9 cm (6') 02/25/2013 2:57 PM EDT Body Mass Index 34.99 02/25/2013 2:57 PM EDT Plan of Treatment Health Maintenance Due Date Last Done Comments [facility]-Depression Screening 1983 [facility]-HIV Screening 1983 [facility]-Hepatitis C Screening 1983 [facility]-Infant/Child/Adol SDOH Screenings 1983 [facility]-Varicella Vaccines (1 of 2 - 13+ 2-dose series) 01/21/1996 HPV Vaccines (1 - Male 3-dose series) 1998 [facility]- SDOH Screenings 2001 [facility]-Adult SDOH Screenings 2001 [facility]-Hepatitis B Vaccines (1 of 3 - 19+ 3-dose series) 2002 [facility]-MSRVF-16 Vaccine (3 - season) 2024 12/16/2020, 11/25/2020 [facility]-Influenza Vaccine (#1) 2025 [facility]-DTaP,Tdap,and Td Vaccines (2 - Td or Tdap) 12/16/2030 12/16/2020 [facility]-Zoster Vaccines (1 of 2) 2033 [facility]-HIB Vaccines Aged Out No longer e ligible based on patient's age to complete this topic [facility]-Hepatitis A Vaccines Aged Out No longer eligible based on patient's age to complete this topic [facility]-IPV Vaccines Aged Out No longer e ligible based on patient's age to complete this topic [facility]-Pneumococcal Vaccine: Pediatrics (0 to 5 Years) and At-Risk Patients (6 to 49 Years) Aged Out No longer eligible b ased on patient's age to complete this topic [facility]-Rotavirus Vaccines Aged Out No lo nger eligible based on patient's age to complete this topic Insurance [facility] Care Teams Press Leader Relationship Specialty Start Date End Date Pcp, No [address] [place] [address] PCP - General Family Medicine 01/05/24
[2024-11-10] VITALS (11 sets, daily range): BP systolic 136–173; BP diastolic 86–105; PULSE 86–111; RESP 18–22; TEMP 36.8; O2SAT 95–97
[2024-11-10 00:03] LABS: Lipase 404 U/L (23-300)
[2024-11-10] MEDS: BELLADONNA ALKALOIDS 60 ML ML PO (00:06)
[2024-11-10] MEDS: ASPIRIN 81MG CHEWABLE TABLET 324 MG PO (00:06)
[2024-11-10] MEDS: ACETAMINOPHEN 500MG TAB 1000 MG PO (00:06)
[2024-11-10] MEDS: NITROGLYCERIN 0.4MG SL TABLET 0.4 MG SL (00:07)
[2024-11-10 00:21] LABS: D-Dimer 0.54 ug/mL (0.0-0.5)
--- NOTE | 2024-11-10 00:42 | CT_ITS ---
PROCEDURE INFORMATION: Exam: CTA Chest With Contrast Exam date and time: 11/10/2024 12:50 AM Age: 39 years old Clinical indication: Pain and abnormal findings; Abnormal diagnostic tests; Elevated d-dimer; Other: Tachy; Left-sided; Additional info: Cp, tachy, positive dimer TECHNIQUE: Imaging protocol: Computed tomographic angiography of the chest with contrast. Exam focused on the arteries. 3D rendering (Not supervised by radiologist): MIP and/or 3D reconstructed images were created by the technologist. Radiation optimization: All CT scans at this facility use at least one of these dose optimization techniques: automated exposure control; mA and/or kV adjustment per patient size (includes targeted exams where dose is matched to clinical indication); or iterative reconstruction. Contrast material: ISOUVE 370; Contrast volume: 70 ml; Contrast route: INTRAVENOUS (IV); COMPARISON: CR XR CHEST PORTABLE 11/10/2024 12:08 AM FINDINGS: Pulmonary arteries: No CT evidence of acute pulmonary embolus. Aorta: No aortic dissection. Lungs: Mild diffuse ground-glass pattern infiltrates bilaterally Pleural spaces: No pleural effusion. No pneumothorax. Heart: Unremarkable. No cardiomegaly. No pericardial effusion. Coronary arteries: No heavily calcified coronary arteries or stented coronary arteries in particular the circumflex territory Lymph nodes: Unremarkable. No enlarged lymph nodes. Liver: Severely decreased CT attenuation throughout the liver. Bones/joints: Unremarkable. No acute fracture. Soft tissues: Unremarkable. IMPRESSION: 1. Diffuse ground-glass pattern infiltrates may indicate mild pulmonary edema versus infection or less likely airways disease 2. Severe hepatic steatosis 3. No CT evidence of acute pulmonary embolus or aortic dissection.
[2024-11-10 00:48] LABS: Alanine Aminotransferase 99 U/L (12-78); Albumin Level 4.5 g/dl (3.5-5.0); Albumin/Globulin Ratio 1.0 (1.1-1.8); Alkaline Phosphatase 87 U/L (38-126); Anion Gap 19.4 mEq/L (5-15); Aspartate Amino Transferase 103 U/L (17-59); Bilirubin,Total 1.1 mg/dl (0.2-1.3); Blood Urea Nitrogen 10 mg/dl (9-20); Calcium 9.0 mg/dl (8.4-10.2); Carbon Dioxide 26 mmol/L (22.0-30.0); Chloride 90 mmol/L (98-107); Creatinine Clearance Estimated 324 mL/min (50-200); Creatinine,Serum 0.50 mg/dl (0.66-1.25); Estimated Glomerular Filt Rate 183 ml/min (>60); GFR (African American) 222 ML/MIN (>60); Globulin 4.5 g/dL (1.3-3.2); Glucose 396 mg/dl (74-100); Potassium 4.4 mmoL/L (3.5-5.1); Sodium 131 mmol/L (136-145); Total Protein,Serum 9.0 g/dl (6.3-8.2)
[2024-11-10 01:00] LABS: Troponin I < 0.01 ng/ml (0.00-0.034)
[2024-11-10] MEDS: 0.9 % SODIUM CHLORIDE 50 ML VIAL 40 ML IV (01:06)
[2024-11-10] MEDS: SODIUM CHLORIDE 0.9% 10ML SYR (RAD ONLY) 10 ML IV (01:06)
[2024-11-10] MEDS: IOPAMIDOL-370 (76%);100ML BOTTLE 70 ML IV (01:06)
[2024-11-10 03:19] LABS: Troponin I < 0.01 ng/ml (0.00-0.034)
== END 2024-11-10 03:41 | disposition home or self-care (01) ==
PROVIDERS: Emergency Provider Emergency Medicine
DX: R07.9 Chest pain, unspecified (principal); I10 Essential (primary) hypertension; F17.210 Nicotine dependence, cigarettes, uncomplicated
CPT/HCPCS: 71045; 71275; 80053; 83690; 84484; 85025; 85378; 93005; 99285; Q9967

== ENCOUNTER 2024-12-16 14:52 | Outpatient (CLI) | payer MEDICAID, SELFPAY ==
--- OUTSIDE RECORDS SUMMARY | 2024-12-16 14:54 | XMS_ITS | Encounter Summary ---
Author Organization [employer] ([place], [place], [place], [place]) Address [address] [place] [address] Care Team Providers Care Electrical Mechanical Technician Name Role Phone Misty Alvarez APRN Primary Care Provider [phone]- [phone] Santhosh Abernathy MD Primary Care Provider [phone] Trinh Espinal APRN Primary Care Provider [phone]- [phone] Reason for Visit * Reason Onset Date Comments needing call back about clearance 10/04/2023 Encounter Details Date Type Department Care Team (Late st Contact Info) Description 10/04/2023 Telephone [facility] Cardiology [address] [address] David Franklin, PA-C [address] [place] [address] needing call back about clearance Social History Tobacco Use Types Packs/Day Years Used Date Smoking Tobacco: Some Days Cigarettes Smokeless Tobacco: Current Comments:Vapes Alcohol Use Standard Drinks/Week Comments Not Currently 0 (1 standard drink = 0.6 oz pur e alcohol) [facility] - Mental Health Answer Date Recorde [...] Do you speak a language other than Moroccan at [facility]? No 08/19/2023 Do you want help [...] documented as of this encounter Functional Status documented as of this encounter Miscellaneous Notes [...] 08/30 and echo on 08/19/ Please call [phone] documented in this encounter Plan of Treatment Not on file documented as of this encounter Visit Diagnoses Not on filedocumented in this encounter Care Teams Electrical Mechanical Technician Relationship Specialty Start Date End Date Misty Alvarez APRN [address] [place] [address] PCP - General Family Medicine 01/22/23 03/02/24 Santhosh Abernathy MD [address] [place] [address] PCP - General Internal Medicine 03/03/24 04/15/24 Trinh Espinal APRN [address] [place] [address] PCP - General Family Medicine 04/23/24 documented as of this encounter
--- OUTSIDE RECORDS SUMMARY | 2024-12-16 14:54 | XMS_ITS | Encounter Summary ---
Author Organization [employer] ([place]) Address [address] [place] [address] Care Team Providers Care Senior Business Broker Name Role Phone Misty Alvarez APRN Primary Care Provider [phone]- [phone] Santhosh Abernathy MD Primary Care Provider [phone] Trinh Espinal VETERINARY VIRUS SERUM INSPECTOR Primary Care Provider [phone]- [phone] Encounter Details Date Type Department Care Team (Late st Contact Info) Description 10/04/2023 Telephone [facility] Primary Care [address] [facility] [address] [place] [address] Emily Munguia, IT APPLICATION ARCHITECT Social History Tobacco Use Types Packs/Day Years [...] speak a language other than Moroccan at [facility]? No 08/19/2023 Do you want help [...] on filedocumented in this encounter Care Teams Senior Business Broker Relationship Specialty Start Date End Date Misty Alvarez APRN [address] [place] [address] PCP - General Family Medicine 01/22/23 03/02/24 Santhosh Abernathy MD [address] [place] [address] PCP - General Internal Medicine 03/03/24 04/15/24 Trinh Espinal APRN [address] [place] [address] PCP - General Family Medicine 04/23/24 documented as of this encounter
--- OUTSIDE RECORDS SUMMARY | 2024-12-16 14:54 | XMS_ITS | Clinical Summary ---
Author Organization Healthcare Address [address] [place] [address] Care Team Providers Care Deckhand Oyster Dredge Name Role Phone Pcp, No Primary Care [...] of 2 - 13+ 2-dose series) 01/21/1996 [facility]- SDOH Screenings 2001 [facility]-Adult SDOH Screenings 2001 [facility]-Hepatitis B Vaccines (1 of 3 - 19+ 3-dose series) 2002 HPV Vaccines (1 - 3-dose SCDM series) 2010 [id number] Vaccine (3 - season) 2024 12/16/2020, 11/25/2020 [...] patient's age to complete this topic Insurance [facility] Care Teams Deckhand Oyster Dredge Relationship Specialty Start Date End Date Pcp, Kellie [address] [place] [address] PCP - General Family Medicine 01/05/24
--- OUTSIDE RECORDS SUMMARY | 2024-12-16 14:54 | XMS_ITS | Encounter Summary ---
Author Organization [employer] ([place], [place], [place], [place]) Address [address] [place] [address] Care Team Providers Care Regional Marketing Manager Name Role Phone Trinh Espinal AUTHORIZATION REP Primary Care Provider [phone]- [phone] Reason for Visit * Reason Onset Date Comments Medication Refill 08/14/2024 Encounter Details Date Type Department Care Team (Late st Contact Info) Description 08/14/2024 Telephone [facility] Primary Care [address] [address] Trinh Espinal, AUTHORIZATION REP [address] [place] [address] Medication Refill Social History Tobacco Use Types Packs/Day Years Used Date Smoking Tobacco: Former Cigarettes Smokeless Tobacco: Former Comments:Vapes Alcohol Use Standard Drinks/Week Comments Not Currently 0 (1 standard drink = 0.6 oz pur e alcohol) [facility] - Mental Health Answer Date Recorde [...] Do you speak a language other than Argentine at [facility]? No 08/19/2023 Do you want help [...] FROM: Jorge Luis Flores CSN: TO: [facility] CLINICAL AUDOGRAPH OPERATOR [[id number]] SUBJECT: Medication Related Request PROVIDER: TRINH ESPINAL [[id number]] DEPARTMENT: [facility] [[id number]] ENCOUNTER REASON FOR CALL: MEDICATION REFILL [[id number]] ENCOUNTER TYPE: Telephone REASON FOR CALL: Refill [...] sildenafiL (VIAGRA) 50 MG tablet PREFERRED PHARMACY? [facility]/pharmacy #[id number] - [place], [place] - [address] [facility] [address] [facility] [address] CALLER'S NAME: Jeremy Melo RELATION TO PATIENT: Self [1] PREFERRED LANGUAGE: Argentine BEST CALL BACK PHONE NUMBER: Home Phone: ([phone]) WHAT IS THE BEST WAY FOR THE OFFICE TO CONTACT YOU?: OK to leave message on voicemail documented in this encounter Plan of Treatment Not on file documented as of this encounter Visit Diagnoses Not on filedocumented in this encounter Care Teams Regional Marketing Manager Relationship Specialty Start Date End Date Trinh Espinal, AUTHORIZATION REP [address] [place] [address] PCP - General Family Medicine 04/23/24 documented as of this encounter
--- OUTSIDE RECORDS SUMMARY | 2024-12-16 14:55 | XMS_ITS | Encounter Summary ---
Author Organization [employer] ([place], [place], [place]) Address [address] [place] [address] Care Team Providers Care Consumer Lender Name Role Phone Misty Alvarez APRN Primary Care Provider [phone]- [phone] Santhosh Abernathy MD Primary Care Provider [phone] Trinh Espinal HORSE WRANGLER Primary Care Provider [phone]- [phone] Reason for Visit * Reason Onset Date Comments Positive Covid 07/06/2023 Encounter Details Date Type Department Care Team (Late st Contact Info) Description 07/06/2023 Telephone [facility] Primary Care [address] [address] Misty Alvarez APRN [address] [place] [address] Positive Covid Social History Tobacco Use Types Packs/Day Years Used Date Smoking Tobacco: Every Day Cigarettes Smokeless Tobacco: Never Alcohol Use Standard Drinks/Week Comments Not Currently 0 (1 standard drink = 0.6 oz pur e alcohol) [facility] - Mental Health Answer Date Recorde d [...] Do you speak a language other than Telugu at [facility]? No 08/19/2023 Do you want help [...] treat symptoms otc call if its worse R * Telephone Encounter - Elizabeth Hdez - [...] OK to leave message on voicemail: Yes R documented in this encounter Plan of Treatment Not on file documented as of this encounter Visit Diagnoses Not on filedocumented in this encounter Care Teams Consumer Lender Relationship Specialty Start Date End Date Misty Alvarez APRN [address] [place] [address] PCP - General Family Medicine 01/22/23 03/02/24 Santhosh Abernathy MD [address] [place] [address] PCP - General Internal Medicine 03/03/24 04/15/24 Trinh Espinal APRN [address] [place] [address] PCP - General Family Medicine 04/23/24 documented as of this encounter
--- OUTSIDE RECORDS SUMMARY | 2024-12-16 14:55 | XMS_ITS | Encounter Summary ---
Author Organization [facility] Address [address] [place] [address] Care Team Providers Care Cable Hooker Name Role Phone Pcp, No Primary Care Provider Unavailabl e Encounter Details Date Type Department Care Team (Late st Contact Info) Description 01/06/2024 Ophth Exam [facility] [address] [place] [address] Marilu De Dios MD [address] [place] [address] Social History Tobacco Use Types [...] on filedocumented in this encounter Care Teams Cable Hooker Relationship Specialty Start Date End Date Pcp, Kellie [address] [place] [address] PCP - General Family Medicine 01/05/24 documented as of this encounter
--- OUTSIDE RECORDS SUMMARY | 2024-12-16 14:55 | XMS_ITS | Referral Summary ---
Author Organization [employer] ([place], [place], [place], [place]) Address [address] [place] [address] Care Team Providers Care Wet End Helper Name Role Phone Trinh Espinal FREIGHT CAR INSPECTOR Primary Care Provider [phone]- [phone] Encounters Date Type Department Care Team Description 10/06/2024 Refill [facility] - [facility] [address] [place] [address] Trinh Espinal, SARA Other male erectile dysfunction from Last 3 Months Allergies No known active allergies Medications empagliflozin (JARDIANCE) 10 mg tablet Take 1 tablet (10 mg total) by mouth daily. 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 Put 1 pill [...] 24 hr tabletIndications: Coronary artery disease involving [place] coronary artery of [place] heart without angina pectoris TAKE 1 TABLET [...] Due Covid-19 Vaccine MRNA (PF) 1 2yr+ ([employer])([id number]) 12/16/2020,11/25/2020 Tdap 12/16/2020 Social History Tobacco Use Types Packs/Day Years Used Date Smoking Tobacco: Former Cigarettes Smokeless Tobacco: Former Tobacco Cessation:Counseling Given: Not Answered Comments:Vapes Alcohol Use Standard Drinks/Week Comments Not Currently 0 (1 standard drink = 0.6 oz pur e alcohol) [facility] - Mental Health Answer Date Recorde d Little interest or pleasure in doing things Not at all 06/18/2024 Feeling down, depressed, or hopeless Not at all 06/18/2024 Feeling of Stress Not on file 06/18/2024 Utilities Answer Date Recorded In the past 12 months, has t he electric, gas, oil, or water [employer] threatened to shut off services in your [...] Do you speak a language other than [place]? 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 from Last 3 Months or Most Recently Relevant to Health Maintenance Results * (ABNORMAL) Hemoglobin A1c (04/09/2024 11:59 AM EST) Hemoglobin A1c 8.5(H) 4.8 - 5.6 % [facility] Comment: Prediabetes: 5.7 - 6.4 Diabetes: >6.4 Glycemic control for adults with diabetes: <7.0 Blood 04/09/2024 11:5 9 AM EST 04/09/2024 Narrative [facility] - 04/10/2024 7:08 AM EST Performed at: [address] [place] [id number] Foster Care Case Manager: Satish Murillo PhD, Phone: [phone] us Charles Kearns DO LAB BLOOD ORDERABLES Final Re sult Performing Organization Address [facility] [employer] [facility] Phone Number [facility] * (ABNORMAL) Lipid panel (04/09/2024 11:59 AM EST) Cholesterol, Total 124 100 - 199 mg/dL [facility] Triglycerides 330(H) 0 - 149 mg/dL [facility] HDL Cholesterol 25(L) >39 mg/dL [facility] VLDL Cholesterol Marcellus 50(H) 5 - 40 mg/dL [facility] LDL Calculated 49 0 - 99 mg/dL [facility] Blood 04/09/2024 11:5 9 AM EST 04/09/2024 Narrative [facility] - 04/10/2024 7:08 AM EST Performed at: [facility] [id number] Foster Care Case Manager: Satish Murillo PhD, Phone: [phone] us Charles Kearns DO LAB BLOOD ORDERABLES Final Re sult Performing Organization Address [facility] [employer] [facility] Phone Number [facility] from Last 3 Months or Most Recently Relevant to Health Maintenance Insurance [employer] Advance Directives For more information, please contact: [phone] * Full Code (Latest Code Status on [...] if patient is in distress. Care Teams Wet End Helper Relationship Specialty Start Date End Date Trinh Espinal, FREIGHT CAR INSPECTOR [address] [facility] [place] [address] PCP - General Family Medicine 04/23/24
--- OUTSIDE RECORDS SUMMARY | 2024-12-16 14:55 | XMS_ITS | Clinical Summary ---
Author Organization [employer] ([place], [place], [place], [place]) Address [address] [place] [address] Care Team Providers Care Director Food Safety Name Role Phone Trinh Espinal SARA Primary Care Provider +1- [phone] Allergies No known active allergies Medications empagliflozin (JARDIANCE) 10 mg tablet Take 1 tablet (10 mg total) by mouth daily. Active nitroglycerin (NITROSTAT) 0.4 MG SL tabletIndications: Coronary artery disease involving mi'kmaq coronary artery of mi'kmaq heart without angina pectoris Put 1 pill [...] 24 hr tabletIndications: Coronary artery disease involving mi'kmaq coronary artery of mi'kmaq heart without angina pectoris TAKE 1 TABLET [...] EC tabletIndications: Non-STEMI (non-ST elevated myocardial infarction) ([facility]),H/O heart artery stent Take 1 tablet (81 mg total) by mouth daily. 90 tablet 1 5 Active clopidogreL (PLAVIX) 75 mg tabletIndications: Non-STEMI (non-ST elevated myocardial infarction) ([facility]) Take 1 tablet (75 mg total) by [...] Date Type Department Care Team Description [facility] [address] [address] Trinh Espinal, BROILER SUPERVISOR Other male erectile dysfunction from Last 3 Months Immunizations Name Administration Dates Next Due Covid-19 Vaccine MRNA (PF) 1 2yr+ ([employer])([id number]) 12/16/2020,11/25/2020 Tdap 12/16/2020 Family History Medical History [...] drink = 0.6 oz pur e alcohol) [facility] - Mental Health Answer Date [...] Do you speak a language other than Mongolian at [facility]? No 08/19/2023 Do you want help [...] 2 diabetes mellitus without complication, unspecified whether computer terminal operator insulin use (HCC) Presence of drug coated stent in left circumflex coronary artery Coronary artery disease involving mi'kmaq coronary artery of mi'kmaq heart without angina pectoris LIPID PANEL Routine 04/09/2024 11:59 AM EST Hypertension, unspecified type Mixed hyperlipidemia Type 2 diabetes mellitus without complication, unspecified whether assisted insulin use (HCC) Presence of drug coated stent in left circumflex coronary artery Coronary artery disease involving mi'kmaq coronary artery of mi'kmaq heart without angina pectoris from Last 3 [...] AM EST Performed at: 01 - [facility] [address] [id number] Tobacco Stripping Machine Operator: Satish Murillo PhD, Phone: [phone] Charles Urmila LAB BLOOD ORDERABLES Final Re sult Performing Organization Address [facility] de Phone Number [facility] * (ABNORMAL) Lipid panel (04/09/2024 11:59 AM EST) [facility] Cholesterol, Total 124 100 - 199 mg/dL [facility] Triglycerides 330(H) 0 - 149 mg/dL [facility] HDL Cholesterol 25(L) >39 mg/dL [facility] VLDL Cholesterol Marcellus 50(H) 5 - 40 mg/dL [facility] LDL Calculated 49 0 - 99 mg/dL [facility] Blood 04/09/2024 11:5 9 AM EST 04/09/2024 Narrative [facility] - 04/10/2024 7:08 AM EST Performed at: 01 - [facility] [address] [id number] Tobacco Stripping Machine Operator: Satish Murillo PhD, Phone: [phone] Charles Kearns LAB BLOOD ORDERABLES Final Re sult Performing Organization Address [facility] Phone Number [facility] from Last 3 Months or Most Recently Relevant to Health Maintenance Insurance R Advance Directives For more information, please contact: [phone] * Full Code (Latest Code Status on [...] if patient is in distress. Care Teams Director Food Safety Relationship Specialty Start Date End Date Trinh Espinal, BROILER SUPERVISOR [address] [place] [address] PCP - General Family Medicine 04/23/24
[2024-12-16 15:28] LABS: Hematocrit 41.6 % (42.0-52.0); Hemoglobin 14.8 g/dL (14.1-18.0); Immature Granulocytes % 0.1 %; Mean Corpuscular HGB Conc 35.6 g/dL (31.8-35.4); Mean Corpuscular Hemoglobin 30.3 pg (27.0-31.2); Mean Corpuscular Volume 85.1 fl (80-94); Nucleated Red Blood Cells % 0 %; Platelet Count 260 K/mm3 (142-424); Red Blood Count 4.89 M/mm3 (4.60-6.20); Red Cell Distribution Width-SD 37.5 fL; White Blood Count 8.2 K/mm3 (4.8-10.8)
[2024-12-16 16:31] LABS: Alanine Aminotransferase 69 U/L (12-78); Albumin Level 4.1 g/dl (3.5-5.0); Alkaline Phosphatase 80 U/L (38-126); Anion Gap 10.9 mEq/L (5-15); Aspartate Amino Transferase 69 U/L (17-59); Bilirubin,Direct 0.3 mg/dl (0.0-0.4); Bilirubin,Indirect 0.5 mg/dL (0.0-0.9); Bilirubin,Total 0.8 mg/dl (0.2-1.3); Bilirubin,Unconjugated 0.6 mg/dL (0.0-1.1); Blood Urea Nitrogen 10 mg/dl (9-20); Calcium 9.1 mg/dl (8.4-10.2); Carbon Dioxide 27 mmol/L (22.0-30.0); Chloride 100 mmol/L (98-107); Cholesterol 98 mg/dl (140-200); Creatinine,Serum 0.60 mg/dl (0.66-1.25); Estimated Glomerular Filt Rate 148 ml/min (>60); GFR (African American) 180 ML/MIN (>60); Glucose 180 mg/dl (74-100); HDL Cholesterol 28 mg/dl (40-60); Magnesium 1.4 mg/dl (1.6-2.3); Potassium 3.9 mmoL/L (3.5-5.1); Sodium 134 mmol/L (136-145); Total Protein,Serum 7.2 g/dl (6.3-8.2); Triglycerides 167 mg/dl (30-150)
[2024-12-16 16:32] LABS: Free T4 (Free Thyroxine) 1.26 ng/dl (0.78-2.19)
[2024-12-16 17:04] LABS: Thyroid Stimulating Hormone 2.07 uIU/mL (0.465-4.68)
== END 2024-12-16 23:59 | disposition home or self-care (01) ==
PROVIDERS: PCP Nurse Practitioner Family; Visit Provider Nurse Practitioner
DX: I25.10 Atherosclerotic heart disease of native coronary artery without angina pectoris (principal); I10 Essential (primary) hypertension; E78.5 Hyperlipidemia, unspecified
CPT/HCPCS: 36415; 80048; 80061; 80076; 83735; 84439; 84443; 85025

== ENCOUNTER 2025-01-01 08:07 | Outpatient (CLI) | payer MEDICAID, SELFPAY ==
--- NOTE | 2025-01-01 08:00 | CA_ITS ---
APPROVED REPORT EXAM: Comprehensive 2D, Doppler, and color-flow Echocardiogram Window Machine Operator: ENRICO Smith, RVS Ht: 6 ft 1 in Wt: 259lbs BSA: 2.40 BP: 131/84 mmHg Indications: Chest pain Echo Enhancing Agent Indication: Rule out Shunt Agent(s) / Amount(s) Used: Agitated Saline 20 cc Comments: Negative for interatrial shunt 2D Dimensions IVSd 1.03 cm M: 0.6-1.2 LVEF (Visual) 47.80 % PWd 0.91 cm M: 0.6 - 1.2 LA Volume 46.50 mL LVDd 4.71 cm M: 4.2 - 5.9 LA Volume Index 19.38 mL/m2 (M/F) 16-34 LVDs 3.58 cm M: 2.5 - 4.0 Left Atrium 3.64 cm M: 3.0 - 4.0 M-Mode Dimensions RVDd 3.01 cm (0.9-2.6) LA Diam 3.83 cm (1.9-4.0) LVDd 5.59 cm (3.5-5.7) LVDs 3.61 cm (3.5-5.7) IVSd 1.17 cm (0.6-1.1) PWd 0.90 cm (0.6-1.1) EF (Teich) 64.20% EPSs 0.26 cm FS 35.40% EDV (Teich) 153.00 mL TAPSE 1.94 (<1.7) ESV (Teich) 54.80 mL LV Diastology E Decel Time 223 (160-240 msec) E/A Ratio 1.39 MED A' 8.40 cm/s LAT A' 10.20 cm/s Aortic Valve RIA Index 1.11 cm2/m2 AoV Peak Tu. 105.0 (50-130 cm/s) AO Peak GR. 4.40 mmHg AO Mean GR. 2.20 (<5 mmHg) AO VTI 19.4 (18-25 cm) RIA (VTI) 2.74 (2.5-4.5 cm2) Mitral Valve MV A Velocity 46.0 (40-130 cm/s) E/A Ratio 1.39 Tricuspid Valve TR P. Velocity 227.00 cm/s RAP Estimate 10.00 mmHg RVSP 30.70 mmHg Left Ventricle The left ventricle is normal size. Left ventricular systolic function is normal. The left ventricular ejection fraction is within the normal range. There is normal left ventricular wall thickness. There is normal LV segmental wall motion. The left ventricular diastolic function is normal. LVEF is 55% Right Ventricle The right ventricle is normal size. The right ventricular systolic function is normal. Atria The left atrium size is normal. The right atrium size is normal. There is no color Doppler evidence of interatrial shunt. Agitated saline administration demonstrates no evidence of interatrial shunt. Aortic Valve The aortic valve opens well. There is no hemodynamically significant aortic valvular stenosis. No aortic regurgitation is present. Mitral Valve The mitral valve is normal in structure. No evidence of mitral valve stenosis. Mild mitral regurgitation is present. Tricuspid Valve The tricuspid valve leaflets are thin and pliable. Mild tricuspid regurgitation. RVSP is normal. Pulmonic Valve The pulmonary valve is grossly normal in structure. Trace pulmonic valve regurgitation is present. Great Vessels The aortic root is normal in size. IVC is normal in size and collapses >50% with inspiration. Pericardium There is no pericardial effusion. Other Information Study Quality: Fair Conclusion Normal biventricular systolic function. Mild MR, mild TR. There is no color Doppler evidence of interatrial shunt. Agitated saline administration demonstrates no evidence of interatrial shunt. Electronically signed by : Dian Galeano MD 01/01/2025 23:30:29
--- OUTSIDE RECORDS SUMMARY | 2025-01-01 08:25 | XMS_ITS | Clinical Summary ---
Author Organization Healthcare Address [address] [place] [address] Care Team Providers Care Motion Study Analyst Name Role Phone Pcp, No Primary Care [...] Vaccines (1 - 3-dose SCDM series) 2010 [id number] Vaccine (3 - season) 2024 12/16/2020, 11/25/2020 [...] patient's age to complete this topic Insurance [facility] Care Teams Motion Study Analyst Relationship Specialty Start Date End Date Pcp, Kellie [address] [place] [address] PCP - General Family Medicine 01/05/24
--- OUTSIDE RECORDS SUMMARY | 2025-01-01 08:25 | XMS_ITS | Encounter Summary ---
Author Organization [facility] Address [address] [place] [address] Care Team Providers Care Workforce Planner Name Role Phone Pcp, No Primary Care Provider Unavailabl e Encounter Details Date Type Department Care Team (Late st Contact Info) Description 01/06/2024 Ophth Exam [facility] [address] [place] [address] Marilu De Dios MD [address] [place] [address] Social History Tobacco Use Types [...] on filedocumented in this encounter Care Teams Workforce Planner Relationship Specialty Start Date End Date Pcp, Kellie [address] [place] [address] PCP - General Family Medicine 01/05/24 documented as of this encounter
--- OUTSIDE RECORDS SUMMARY | 2025-01-01 08:25 | XMS_ITS | Clinical Summary ---
Author Organization [employer] ([place], [place], [place]) Address [address] [place] [address] Care Team Providers Care Sugar Coating Hand Name Role Phone Trinh Espinal Rodolfo RUIZ Primary Care Provider [phone] Allergies No known active allergies Medications empagliflozin (JARDIANCE) 10 mg tablet Take 1 tablet (10 mg total) by mouth daily. Active HYDROcodone-acetam inophen (NORCO) 5-325 mg per tablet Take 1 tablet by mouth every 6 (six) hours as needed. 03/26/20 24 Active ticagrelor (BRILINTA) 90 mg tab tabletIndications: Non-STEMI (non-ST elevated myocardial infarction) (HCC),H/O heart artery stent Take 1 tablet (90 mg total) by mouth 2 (two) times daily. 180 tablet 1 04/23/20 24 Active DULoxetine (CYMBALTA) 30 MG capsuleIndications :Other diabetic neurological complication associated with type 2 diabetes mellitus (HCC) Take 1 capsule (30 mg total) by mouth daily. 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 90 tablet 1 07/03/19 25 026 Active glipiZIDE (GLUCOTROL XL) 5 MG 24 hr tabletIndications: Type 2 diabetes mellitus without complication, without long-term current use of insulin (HCC) Take 1 tablet (5 mg total) by mouth daily. 90 tablet 1 07/03/19 25 Active lisinopriL (ZESTRIL) 20 MG tabletIndications: Hypertension, unspecified type Take 1 tablet (20 mg total) by mouth daily. 90 tablet 1 07/03/19 25 Active metFORMIN (GLUCOPHAGE-XR) 500 MG 24 hr tabletIndications: Type 2 diabetes mellitus without complication, without long-term current use of insulin (HCC) Take 1 tablet (500 mg total) by mouth 2 (two) times daily HOLD for 2 days post cath. May restart on 08-22-2023 for evening dose.. 180 tablet 1 07/03/19 25 Active atorvastatin (LIPITOR) 80 MG tabletIndications: High triglycerides,Hype rlipidemia, unspecified hyperlipidemia type Take 1 tablet (80 mg total) by mouth nightly. 90 tablet 1 07/03/19 25 Active aspirin 81 MG EC tabletIndications: Non-STEMI (non-ST elevated myocardial infarction) ([facility]),H/O heart artery stent Take 1 tablet (81 mg total) by mouth daily. 90 tablet 1 07/03/19 25 Active clopidogreL (PLAVIX) 75 mg tabletIndications: Non-STEMI (non-ST elevated myocardial infarction) ([facility]) Take 1 tablet (75 mg total) by mouth daily Look-alike/S ound-alike medication. 30 tablet 11 08/28/19 25 Active sildenafiL (VIAGRA) 50 MG tabletIndications: Other male erectile dysfunction Take 1 tablet (50 mg total) by mouth daily as needed. 30 tablet 2 10/07/19 25 Active nitroglycerin (NITROSTAT) 0.4 MG SL tabletIndications: Coronary artery disease involving lower sioux coronary artery of lower si[place] heart without angina pectoris Put 1 pill under tongue every 5min as needed for chest pain.No more than 3 doses in 15min.Call 911 if pain unrelieved 5min after 1st dose. 25 tablet 1 12/26/19 24 025 Active Problems Problem Noted Date Diagnosed Date [...] Date Type Department Care Team Description 10/06/2024 [facility] Primary Care - [address] [address] Trinh Espinal, PATENT CLERK Other male erectile dysfunction from Last 3 Months Immunizations Name Administration Dates Next Due Covid-19 Vaccine MRNA (PF) 1 2yr+ (Pfizer/BioNTCribspot)([id number]) 12/16/2020,11/25/2020 Tdap 12/16/2020 Family History Medical History [...] drink = 0.6 oz pur e alcohol) [facility] - Mental Health Answer Date Recorde [...] Do you speak a language other than Serbian at [facility]? No 08/19/2023 Do you want [...] 2 diabetes mellitus without complication, unspecified whether halfway insulin use (HCC) Presence of drug coated stent in left circumflex coronary artery Coronary artery disease involving lower sioux coronary artery of lower si[place] heart without angina pectoris LIPID PANEL Routine 04/09/2024 11:59 AM EST Hypertension, unspecified type Mixed hyperlipidemia Type 2 diabetes mellitus without complication, unspecified whether halfway insulin use (HCC) Presence of drug coated stent in left circumflex coronary artery Coronary artery disease involving lower sioux coronary artery of lower si[place] heart without angina pectoris from Last 3 [...] AM EST Performed at: 01 - [facility] [address] [id number] Binder And Box Builder: Satish Murillo PhD, Phone: [phone] Charles Urmila LAB BLOOD ORDERABLES Final Re sult Performing Organization Address [facility] de Phone Number [facility] * (ABNORMAL) Lipid panel (04/09/2024 11:59 AM EST) [facility] Cholesterol, Total 124 100 - 199 mg/dL [facility] Triglycerides 330(H) 0 - 149 mg/dL [facility] HDL Cholesterol 25(L) >39 mg/dL [facility] VLDL Cholesterol Marcellus 50(H) 5 - 40 mg/dL [facility] LDL Calculated 49 0 - 99 mg/dL [facility] Blood 04/09/2024 11:5 9 AM EST 04/09/2024 Narrative [facility] - 04/10/2024 7:08 AM EST Performed at: 01 - [facility] [address] [id number] Binder And Box Builder: Satish Murillo PhD, Phone: [phone] Charles Kearns LAB BLOOD ORDERABLES Final Re sult Performing Organization Address [facility] Phone Number [facility] from Last 3 Months or Most Recently Relevant to Health Maintenance Insurance R Advance Directives For more information, please contact: [phone] * Full Code (Latest Code Status on [...] if patient is in distress. Care Teams Sugar Coating Hand Relationship Specialty Start Date End Date Trinh Espinal, PATENT CLERK [address] [place] [address] PCP - General Family Medicine 04/23/24
--- OUTSIDE RECORDS SUMMARY | 2025-01-01 08:25 | XMS_ITS | Encounter Summary ---
Author Organization [employer] ([place]) Address [address] [place] [address] Care Team Providers Care Dust Operator Name Role Phone Misty Alvarez APRN Primary Care Provider [phone]- [phone] Santhosh Abernathy MD Primary Care Provider [phone] Trinh Espinal INDEPENDENT PRODUCER Primary Care Provider [phone] Encounter Details Date Type Department Care Team (Late st Contact Info) Description 10/04/2023 Telephone [facility] Primary Care [address] [place] [address] Emily Munguia, SAFETY SPECIALIST Social History Tobacco Use Types Packs/Day Years [...] Do you speak a language other than Ethiopian at [facility]? No 08/19/2023 Do you want help with [...] on filedocumented in this encounter Care Teams Dust Operator Relationship Specialty Start Date End Date Misty Alvarez APRN [address] [place] [address] PCP - General Family Medicine 01/22/23 03/02/24 Santhosh Abernathy MD [address] [place] [address] PCP - General Internal Medicine 03/03/24 04/15/24 Trinh Espinal APRN [address] [place] [address] PCP - General Family Medicine 04/23/24 documented as of this encounter
--- OUTSIDE RECORDS SUMMARY | 2025-01-01 08:25 | XMS_ITS | Encounter Summary ---
Author Organization [employer] ([place], [place], [place], [place]) Address [address] [place] [address] Care Team Providers Care Equalizing Saw Operator Name Role Phone Trinh Espinal OR DIRECTOR Primary Care Provider [phone] Reason for Visit * Reason Onset Date Comments Medication Refill 08/14/2024 Encounter Details Date Type Department Care Team (Late st Contact Info) Description 08/14/2024 Telephone [facility] Primary Care [address] [address] Trinh Espinal, OR DIRECTOR [address] [place] [address] Medication Refill Social History Tobacco Use Types Packs/Day Years Used Date Smoking Tobacco: Former Cigarettes Smokeless Tobacco: Former Comments:Vapes Alcohol Use Standard Drinks/Week Comments Not Currently 0 (1 standard drink = 0.6 oz pur e alcohol) [facility] - Mental Health Answer Date [...] Do you speak a language other than Colombian at [facility]? No 08/19/2023 Do you want help [...] FROM: Jorge Luis Flores CSN: TO: [facility]YER REPAIRER [[id number]] SUBJECT: Medication Related Request PROVIDER: TRINH ESPINAL [[id number]] DEPARTMENT: [facility] [[id number]] ENCOUNTER REASON FOR CALL: MEDICATION REFILL [[id number]] ENCOUNTER TYPE: Telephone REASON FOR CALL: Refill [...] sildenafiL (VIAGRA) 50 MG tablet PREFERRED PHARMACY? [facility]/pharmacy #[id number] - [place], [place] - [address] [address] CALLER'S NAME: Jeremy Melo RELATION TO PATIENT: Self [1] PREFERRED LANGUAGE: Colombian BEST CALL BACK PHONE NUMBER: Home Phone: ([phone]) WHAT IS THE BEST WAY FOR THE OFFICE TO CONTACT YOU?: OK to leave message on voicemail documented in this encounter Plan of Treatment Not on file documented as of this encounter Visit Diagnoses Not on filedocumented in this encounter Care Teams Equalizing Saw Operator Relationship Specialty Start Date End Date Trinh Espinal, OR DIRECTOR [address] [place] [address] PCP - General Family Medicine 04/23/24 documented as of this encounter
[2025-01-01] MEDS: ALBUTEROL 0.083% 2.5 MG/3 ML NEB IH (11:02)
== END 2025-01-01 23:59 | disposition home or self-care (01) ==
LOC: RT 08:07
PROVIDERS: PCP Nurse Practitioner Family; Visit Provider Nurse Practitioner Family
DX: I08.1 Rheumatic disorders of both mitral and tricuspid valves (principal); I25.10 Atherosclerotic heart disease of native coronary artery without angina pectoris; I10 Essential (primary) hypertension; E78.5 Hyperlipidemia, unspecified; F17.200 Nicotine dependence, unspecified, uncomplicated
CPT/HCPCS: 93306; 94060; 94726; 94729